=== PATIENT | female | born 1995 | race Caucasian/White ===

== ENCOUNTER 2024-05-26 06:37 | Emergency (ER) | payer MEDICAID, SELFPAY ==
[2024-05-26] VITALS (7 sets, daily range): BP systolic 85–120; BP diastolic 49–72; PULSE 103–125; RESP 14–18; TEMP 36.2–36.7; O2SAT 88–93; BMI 21.9
--- NOTE | 2024-05-26 07:22 | EDS_ITS ---
HPI History of Present Illness Chief Complaint: Overdose Detail of Chief Complaint: Fentanyl overdose Informant: patient Onset/Context/Timing Onset: Today Context: Sudden Onset Timing: Intermittent Quality: Patient was unresponsive required 2 doses of fentanyl. Location: She was on the sofa at her mom's place where she resides. Current Severity: Gone Maximum Severity: Severe Worsened by: Patient admits to snorting fentanyl Relieved by: 2 doses of Narcan Associated Symptoms Associated Symptoms: Nausea and palpitations Narrative Narrative: Patient is a 28-year-old woman. She has known history of drug abuse. She states her drug of choice is fentanyl. She states she snorts the fentanyl. She denies other drug use. Presently she states she is foggy with regards to things. She was not forthcoming when the police reserves commander was in the room. After police reserves commander left she admitted she had snorted fentanyl. She denies IV drug use. She has no other complaints. Prior similar symptoms: No Recent Illness/Hospitalization: No [facility] Medical History (Updated 05/26/24 @ 08:[address] Dharmesh Henry MD) Fentanyl use disorder, mild Medical History no medical history Home Medications ?Medication ?Instructions ?Recorded ?Last Taken ?Type NK 05/26/24 Unknown History Social History (Updated 05/26/24 @ 07:[address] Dharmesh Henry MD) household members: family Smoking Status: Current every day smoker tobacco type: cigarettes ROS ROS ED Constitutional Constitutional ED: Denies chills, fever(s), subjective or sweats Eyes Eyes: Denies blurry vision, change in vision or diplopia ENT ENT ED: Denies ear pain, rhinorrhea or sore throat Cardiovascular Cardiovascular: Denies chest pain, orthopnea, palpitations or racing heartbeat Respiratory/Chest Respiratory/Chest: Denies cough, dyspnea, dyspnea on exertion or orthopnea Gastrointestinal Gastrointestinal: Reports nausea; Denies abdominal pain, diarrhea, melena or vomiting Genitourinary Genitourinary ED: Denies dysuria, hematuria or urinary frequency Musculoskeletal Musculoskeletal: Denies arthralgias, back pain or myalgias Integumentary Denies abscess, Abrasions or rash Neurologic Neurologic: Denies headache(s), paresthesias or weakness Psychiatric Psychiatric: Denies anxiety or depression Hematologic/Lymphatic Hematologic/Lymphatic: Reports systems reviewed and no addt'l complaints, except as documented EXAM Physical Exam Const Vital Signs: 05/26/24 06:39 05/26/24 06:47 05/26/24 06:50 Temperature 98.1 F Temperature Source Oral Pulse Rate 125 H 121 H Respiratory Rate 16 18 Blood Pressure 120/72 107/66 Blood Pressure Mean 88 76 Pulse Ox 93 Oxygen Delivery Method Room Air Nasal Cannula Oxygen Flow Rate (L/min) 2 Fraction of Inspired Oxygen (FIO2) 89 05/26/24 07:00 05/26/24 07:15 05/26/24 08:04 Temperature 97.2 F L Temperature Source Oral Pulse Rate 110 H 109 H 105 H Respiratory Rate 16 15 14 Blood Pressure 99/49 L 92/50 L 85/54 L Blood Pressure Mean 63 61 64 Pulse Ox 93 88 91 Oxygen Delivery Method Room Air Oxygen Flow Rate (L/min) Fraction of Inspired Oxygen (FIO2) Positive well nourished and well developed Constitutional Narrative: Monitor reveals a sinus tachycardia of 120+. Complexes are narrow. General Appearance ED: well developed, NAD and pallor HEENT Reports moist mucous membranes HEENT Narrative: Atraumatic and normocephalic. Ears normal. Nares patent. Uvula midline. No deviation tongue or protrusion. Eyes PERRL and EOMs intact bilaterally General Eye ED: Negative for pale conjunctiva or scleral icterus Neck no lymphadenopathy, supple and no JVD Chest Wall inspection of chest normal and palpation of chest normal Resp normal respiratory effort and clear to auscultation bilaterally Cardio regular rhythm, S1 normal heart sound, S2 normal heart sound and no murmurs Rate: tachycardic Extremity normal to inspection General Extremety ED: Negative for edema or tenderness General Extremity: Negative for edema Neuro oriented x3, CN's II-XII intact bilaterally and no sensory deficits noted Sensorium / Orientation: alert Motor Exam: strength 5/5 throughout Psych mental status grossly normal Skin no rashes or lesions noted, no wounds and skin turgor normal General Skin Exam: pallor; Negative for jaundice MDM MDM MDM Narrative Medical decision making narrative: Patient was offered detox. She declined. She feels she is not have a problem. Please officer offered help as well, which she declined. Since patient required 2 doses of Narcan will observe for an hour. Will speak with her again regarding desire for detox. Rhythm Strip Rhythm Strip: Sinus Tach Rate: 122 Ectopy: None Treatment and Re-Evaluation :: Patient was reassessed at 0750. Pulse ox is 9091%. Patient seems slightly sluggish. HEENT exam is unremarkable. Speech is normal. Lungs reveal no wheeze rales rhonchi. Heart rate is in proved and is between 90 and 95. Since pulse ox is only 9091% will observe for another 30 minutes. Again she was asked regarding detox. She feels she has not needed since she was clean for 45 days before she made a mistake/pad decision. Patient was reassessed at 0821. Patient awakes easily. Pulse ox is 92%. Will have nurse perform ambulatory pulse ox. If normal will discharge to home with her mother. Pulse ox was 90 to 93% with ambulation. Discharge Plan Triage Chief Complaint: Overdose ED Provider: Dharmesh Henry Dx/Rx/DC Orders Clinical Impression: Opiate overdose, Fentanyl use disorder, mild, Respiratory arrest, Sinus tachycardia seen on panel monitor Instructions: Naloxone Nasal for Overdose Steps Prescriptions: No Action NK Referrals: Tessa Elder [Non-Staff] - As Needed [facility] [Non-Staff] - As soon as possible Print Language: Maltese Disposition Disposition: Home, Self Care
== END 2024-05-26 08:32 | disposition home or self-care (01) ==
PROVIDERS: Emergency Provider Emergency Medicine; Visit Provider Emergency Medicine
DX: T40.411A Poisoning by fentanyl or fentanyl analogs, accidental (unintentional), initial encounter (principal); F11.10 Opioid abuse, uncomplicated; R09.2 Respiratory arrest; Y92.009 Unspecified place in unspecified non-institutional (private) residence as the place of occurrence of the external cause; R00.0 Tachycardia, unspecified; R00.2 Palpitations; R11.0 Nausea; F17.210 Nicotine dependence, cigarettes, uncomplicated
CPT/HCPCS: 99284; A4216